=== PATIENT | female | born 1995 | race Two or more races ===

== ENCOUNTER 2023-03-20 08:59 | Emergency (ER) | payer OTHER ==
[~2023-03-20] VITALS: Ht 154.9 cm; Wt 43.5 kg
[2023-03-20] MEDS ORDERED: ZOLOFT20 MG/1 ML PO (09:49)
[2023-03-20 11:12] LABS: HEMATOCRIT 36.8 % (36.0-45.00); HEMOGLOBIN 12.7 g/dL (12.0-15.00); MEAN CELL VOLUME 86.4 fL (80.00-100.00); MEAN CORPUSCULAR HEMOGLOBIN 29.8 pg (27.00-32.0); MEAN CORPUSCULAR HGB CONC 34.5 g/dl (32.0-36.0); PLATELET COUNT 287 K/uL (150-450); RED BLOOD COUNT 4.26 M/uL (4.00-6.00); RED CELL DISTRIBUTION WIDTH 13.9 % (11.5-14.5)
[2023-03-20 11:29] LABS: PH,URINE 6.5 (5.0-8.0); URINE APPEARANCE Cloudy; URINE BILIRRUBIN Negative (NEGATIVE); URINE BLOOD Negative; URINE COLOR Dark Yellow; URINE GLUCOSE Negative (NEGATIVE); URINE LEUKOCYTE Moderate; URINE NITRATE Negative; URINE PROTEIN Trace (NEGATIVE)
[2023-03-20 11:34] LABS: URINE EPITHELIAL CELLS 140.6 uL (0.0-38.8); URINE RBC 31.4 uL (0.0-20.8); URINE WBC 79.7 uL (0.0-23.2)
[2023-03-20 11:44] LABS: CALCIUM 8.7 mg/dL (8.5-10.1); CREATININE SERUM 0.64 mg/dL (0.55-1.02); GFR 109.71; POTASSIUM 3.95 mEq/L (3.5-5.1)
[2023-03-20 11:46] LABS: URINE BACTERIA > 9821.5 uL (0.0-1933)
[2023-03-20 11:49] LABS: URINE YEAST NEGATIVE /hpf
== END 2023-03-20 16:50 | disposition home or self-care (01) ==
LOC: ER 08:59
PROVIDERS: General Practice
DX: K52.89 Other specified noninfective gastroenteritis and colitis (principal); E86.0 Dehydration; R10.9 Unspecified abdominal pain

== ENCOUNTER 2023-05-26 11:35 | Emergency (ER) | payer OTHER ==
[~2023-05-26] VITALS: Ht 149.9 cm; Wt 43.5 kg
[~2023-05-26 11:35] MED LIST: ZOLOFT20 MG/1 ML PO
[2023-05-26 12:30] LABS: HEMATOCRIT 36.6 % (36.0-45.00); HEMOGLOBIN 12.3 g/dL (12.0-15.00); MEAN CELL VOLUME 86.8 fL (80.00-100.00); MEAN CORPUSCULAR HEMOGLOBIN 29.3 pg (27.00-32.0); MEAN CORPUSCULAR HGB CONC 33.7 g/dl (32.0-36.0); PLATELET COUNT 305 K/uL (150-450); RED BLOOD COUNT 4.22 M/uL (4.00-6.00); RED CELL DISTRIBUTION WIDTH 14.9 % (11.5-14.5)
[2023-05-26 12:51] LABS: ALBUMIN 4.2 gm/dL (3.4-5.0); BILIRUBIN TOTAL 0.48 mg/dL (0.3-1.2); CALCIUM 8.8 mg/dL (8.5-10.1); CREATININE SERUM 0.62 mg/dL (0.55-1.02); GFR 113.8; GLOBULINA 3.9 G/DL (2.4-3.5); POTASSIUM 4.04 mEq/L (3.5-5.1); TOTAL PROTEIN 8.1 gm/dL (6.4-8.2)
[2023-05-26] MEDS ORDERED: PEPCID AC20 MG PO (13:39)
[2023-05-26] MEDS ORDERED: ONDANSETRON ODT8 MG PO (13:39)
== END 2023-05-26 13:48 | disposition home or self-care (01) ==
LOC: ER 11:36
PROVIDERS: General Practice
DX: K52.89 Other specified noninfective gastroenteritis and colitis (principal); R11.2 Nausea with vomiting, unspecified; Z20.822 Contact with and (suspected) exposure to COVID-19